=== PATIENT | male | born 1980 | race Caucasian/White ===

== ENCOUNTER 2018-01-07 13:12 | Emergency (ER) | payer SELFPAY ==
[2018-01-07 13:34] VITALS: BP 129/85; PULSE 74; TEMP 98.4; BMI 26.6
[2018-01-07] MEDS ORDERED: RABIES VACCINE (PCEC)/PF 2.5 UNIT/VIAL IM ONE (14:05)
--- NOTE | 2018-01-07 14:11 | PDOC ---
Suture Removal/Wound Check HPI - History of Present Illness Chief Complaint: Revisit,Rabies Injection Stated Complaint: REVISIT-RABIES SHOT Time Seen by Provider: 01/07/18 14:05 History Source: Yes: Patient Exam Limitations: Yes: No Limitations [facility]ated [facility] - Previous ED Treatment Tetanus Immunization: Yes: Up to Date Antibiotics Prescribed: Yes Past History - Travel Traveled outside of the country in the last 30 days: No Close contact w/someone who was outside of country & ill: No - Past Medical History Allergies/Adverse Reactions: Allergies Allergy/AdvReac Type Severity Reaction Status Date / Time No Known Allergies Allergy Verified 01/07/18 13:31 Home Medications: Ambulatory Orders NK [No Known Home Medication] 01/04/18 COPD: No DVT: No - Surgical History Abdominal Surgery: Yes (RT ING HERNIA) - Suicide/Smoking/Psychosocial Hx Smoking History: Never smoked Have you smoked in the past 12 months: No Information on smoking cessation initiated: No Hx Alcohol Use: No Drug/Substance Use Hx: No Substance Use Type: None Suture Removal/Wound Check PE - Physical Exam Laceration/Wound Check Symptoms: reports: None Current Severity Level: None Maximum Severity Level: None *Review of Systems - Review of Systems Able to Perform ROS?: Yes Constitutional: Yes: See HPI. No: Symptoms Reported, Fever HEENTM: No: Symptoms Reported All Other Systems: Reviewed and Negative *Physical Exam - Vital Signs Last Vital Signs Temp Pulse Resp BP Pulse Ox 98.4 F 74 16 129/85 100 01/07/18 13:31 01/07/18 13:31 01/07/18 13:31 01/07/18 13:31 01/07/18 13:31 - Physical Exam General Appearance: Yes: Nourished, Appropriately Dressed. No: Apparent Distress HEENT: positive: NEO, Normal ENT Inspection, TMs Normal, Pharynx Normal Neck: positive: Supple. negative: Tender *DC/Admit/Observation/Transfer Diagnosis at time of Disposition: Need for rabies vaccination - Discharge Dispostion Disposition: HOME Condition at time of disposition: Stable Decision to Admit order: No - Referrals - Patient Instructions Printed Discharge Instructions: DI for Rabies Vaccine Additional Instructions: Return keep wound clean and dry, dress wound with bacitracin as needed, return for third rabies vaccination January 14 - Post Discharge Activity
== END 2018-01-07 14:24 | disposition home or self-care (01) ==
LOC: JERFT 13:12
PROC: 3E0234Z Introduction of Serum, Toxoid and Vaccine into Muscle, Percutaneous Approach (ICD-10-PCS; principal; 2018-01-07)
DX: Z23 Encounter for immunization (principal); Z20.3 Contact with and (suspected) exposure to rabies
CPT/HCPCS: 90675; 99281-25

== ENCOUNTER 2018-01-14 10:05 | Emergency (ER) | payer SELFPAY ==
[2018-01-14 10:32] VITALS: BP 120/74; PULSE 67; TEMP 98.2; BMI 27.2
[2018-01-14] MEDS ORDERED: RABIES VACCINE (PCEC)/PF 2.5 UNIT/VIAL IM ONE (10:51)
--- NOTE | 2018-01-14 11:07 | PDOC ---
History of Present Illness - General Chief Complaint: Revisit,Rabies Injection Stated Complaint: REVISIT/ VACCINE Time Seen by Provider: 01/14/18 10:51 History Source: Patient Exam Limitations: No Limitations - History of Present Illness Initial Comments: 01/14/18 11:06 37 yr male here for third rabies vaccine. pt has no complaints or reactions from previous vaccines. Past History - Past Medical History Allergies/Adverse Reactions: Allergies Allergy/AdvReac Type Severity Reaction Status Date / Time No Known Allergies Allergy Verified 01/14/18 10:30 Home Medications: Ambulatory Orders NK [No Known Home Medication] 01/04/18 COPD: No DVT: No Other medical history: DENIES. - Surgical History Abdominal Surgery: Yes (RT ING HERNIA) - Suicide/Smoking/Psychosocial Hx Smoking History: Never smoked Have you smoked in the past 12 months: No Hx Alcohol Use: No Drug/Substance Use Hx: No Substance Use Type: None Review of Systems - Review of Systems Able to Perform ROS?: Yes Is the patient limited Maori proficient: No Constitutional: No: Symptoms Reported HEENTM: No: Symptoms Reported Respiratory: No: Symptoms reported Cardiac (ROS): No: Symptoms Reported ABD/GI: No: Symptoms Reported : No: Symptoms Reported, Testicular Swelling Musculoskeletal: No: Symptoms Reported Integumentary: No: Symptoms Reported Neurological: No: Symptoms reported *Physical Exam - Vital Signs Last Vital Signs Temp Pulse Resp BP Pulse Ox 98.2 F 67 19 120/74 100 01/14/18 10:30 01/14/18 10:30 01/14/18 10:30 01/14/18 10:30 01/14/18 10:30 - Physical Exam General Appearance: Yes: Nourished, Appropriately Dressed HEENT: positive: EOMI, NEO Integumentary: positive: Normal Color, Dry, Warm *DC/Admit/Observation/Transfer Diagnosis at time of Disposition: Rabies, need for prophylactic vaccination against - Discharge Dispostion Disposition: HOME Condition at time of disposition: Good - Referrals - Patient Instructions Printed Discharge Instructions: DI for Rabies Vaccine Additional Instructions: return on January 21 for final vaccine - Post Discharge Activity
== END 2018-01-14 11:15 | disposition home or self-care (01) ==
LOC: JERFT 10:05
PROC: 3E0234Z Introduction of Serum, Toxoid and Vaccine into Muscle, Percutaneous Approach (ICD-10-PCS; principal; 2018-01-14)
DX: Z20.3 Contact with and (suspected) exposure to rabies (principal); W54.0XXD Bitten by dog, subsequent encounter
CPT/HCPCS: 90675; 99281-25